=== PATIENT | female | born 1945 | race American Indian/Alaskan Native ===

== ENCOUNTER 2019-03-14 08:14 | Observation (INO) | payer MEDICARE ==
[2019-03-14] MEDS ORDERED: METOCLOPRAMIDE 10 MG/2 ML INJ IV ONE (08:42)
[2019-03-14] MEDS ORDERED: MORPHINE 2 MG/1 ML INJ IV ONE (08:42)
[2019-03-14] MEDS ORDERED: SODIUM CHLORIDE 0.9% 500 ML 500 ML IV ONE (08:42)
[2019-03-14] MEDS ORDERED: PANTOPRAZOLE 40 MG INJ IV ONE (08:43)
--- NOTE | 2019-03-14 08:46 | Event Note ---
Date of service: 03/14/19 Face to Face: Primary care Dr.: Dr Rivas Gastroenterology: Dr Ramirez Past medical history: Gastric ulcer, gastritis, type 2 diabetes, hypertension, history of leukemia or myelodysplastic syndrome, had an upper EGD performed in May 2018 at this hospital, found to have antral gastritis, initiated on pr oton pump inhibitor therapy, recently discontinued by her rehabilitation therapy technician. Plan is to treat her symptoms, obtain rectal guaiac examination, CT scan abdomen pelvis, EKG, and reassess. d/w PA who verbalized understanding Vital Signs 03/14/19 08:16 Temperature 98.4 F Pulse Rate 79 Respiratory 18 Rate Blood Pressure 140/67 O2 Sat by Pulse 100 Oximetry
[2019-03-14 09:09] LABS: Hematocrit 44.7 % (30.3-42.9); Hemoglobin 14.6 gm/dl (10.1-14.3); Mean Corpuscular HGB Conc 33 % (30-34); Mean Corpuscular Volume 82 fl (79-97); Platelet Count 298 K/mm3 (140-440); Red Blood Count 5.43 M/mm3 (3.65-5.03)
--- NOTE | 2019-03-14 09:39 | Emergency Department Report ---
ED Abdominal Pain HPI - General Chief Complaint: Abdominal Pain Stated Complaint: PAIN/VOMIT Time Seen by Provider: 03/14/19 08:36 Source: patient Mode of arrival: Wheelchair Limitations: No Limitations - History of Present Illness MD Complaint: abdominal pain -: Sudden, hour(s) Location: periumbilical, LUQ, LLQ, epigastric Radiation: LLQ, epigastric Severity: moderate Severity scale (0 -10): 10 Quality: cramping Consistency: constant Improves With: nothing Worsens With: nothing Context: other (reports previous history of peptic ulcer disease resulting in an admission about 2-3 years ago) Associated Symptoms: nausea, vomiting, diarrhea, other (she reported having dark stools to Dr. Estrada). denies: constipation, dysuria, hematemesis, hematochezia, hematuria, anorexia - Related Data Home Medications Medication Instructions Recorded Confirmed Last Taken Adult One Daily Multivit Tab PO DAILY 05/07/18 1 Day Ago ~05/06/18 Cardizem CD 180 mg PO DAILY 05/07/18 05/07/18 1 Day Ago ~05/06/18 Folic Acid 400 mg PO DAILY 05/07/18 05/07/18 1 Day Ago ~05/06/18 glipiZIDE [Glipizide] 5 mg PO DAILY 05/07/18 05/07/18 05/06/18 10:00 Previous Rx's Medication Instructions Recorded Last Taken Type Pantoprazole [Protonix] 40 mg PO QDAY #30 tablet 05/09/18 Unknown Rx Allergies Allergy/AdvReac Type Severity Reaction Status Date / Time No Known Allergies Allergy Unverified 05/07/18 07:23 ED Review of Systems ROS: Stated complaint: PAIN/VOMIT Other details as noted in HPI Comment: All other systems reviewed and negative ED Past Medical Hx - Past Medical History Previous Medical History?: Yes Hx Hypertension: Yes Hx Diabetes: Yes Hx HIV: No Additional medical history: Hx of Leukemia, in remission. - Surgical History Past Surgical History?: Yes Additional Surgical History: bilatteral hip replacement - Social History Smoking Status: Current Every Day Smoker Substance Use Type: None - Medications Home Medications: Home Medications Medication Instructions Recorded Confirmed Last Taken Type Adult One Daily Multivit Tab PO DAILY 05/07/18 1 Day Ago History ~05/06/18 Cardizem CD 180 mg PO DAILY 05/07/18 05/07/18 1 Day Ago History ~05/06/18 Folic Acid 400 mg PO DAILY 05/07/18 05/07/18 1 Day Ago History ~05/06/18 glipiZIDE [Glipizide] 5 mg PO DAILY 05/07/18 05/07/18 05/06/18 10:00 History Pantoprazole [Protonix] 40 mg PO QDAY #30 tablet 05/09/18 Unknown Rx ED Physical Exam - General Limitations: No Limitations General appearance: alert, in no apparent distress - Head Head exam: Present: atraumatic, normocephalic - Eye Eye exam: Present: normal appearance, PERRL, EOMI Pupils: Present: normal accommodation - ENT ENT exam: Present: normal exam, normal orophraynx, mucous membranes moist, TM's normal bilaterally - Neck Neck exam: Present: normal inspection, full ROM - Respiratory Respiratory exam: Present: normal lung sounds bilaterally. Absent: respiratory distress, wheezes, rales, chest wall tenderness, accessory muscle use - Cardiovascular Cardiovascular Exam: Present: regular rate, normal rhythm. Absent: systolic murmur, diastolic murmur, rubs, gallop - GI/Abdominal GI/Abdominal exam: Present: soft, tenderness, normal bowel sounds, other (no Shabana O Govea Browne no Rovsing). Absent: guarding - Rectal Rectal exam: Present: heme (-) stool, hemorrhoids - Extremities Exam Extremities exam: Present: normal inspection - Back Exam Back exam: Present: normal inspection - Neurological Exam Neurological exam: Present: alert, oriented X3, CN II-XII intact - Psychiatric Psychiatric exam: Present: normal affect, normal mood - Skin Skin exam: Present: warm, dry, intact, normal color. Absent: rash ED Course Vital Signs 03/14/19 03/14/19 03/14/19 08:16 09:26 10:37 Temperature 98.4 F Pulse Rate 79 88 88 Respiratory 18 22 18 Rate Blood Pressure 140/67 Blood Pressure 155/96 136/80 [Right] O2 Sat by Pulse 100 100 100 Oximetry 03/14/19 13:09 Temperature Pulse Rate 88 Respiratory 18 Rate Blood Pressure Blood Pressure 134/74 [Right] O2 Sat by Pulse 98 Oximetry ED Medical Decision Making - Lab Data Result diagrams: 03/14/19 08:53 03/14/19 10:03 - EKG Data EKG shows normal: sinus rhythm Rate: normal - EKG Data When compared to previous EKG there are: no significant change Interpretation: no acute changes - Radiology Data Radiology results: report reviewed (CT scan findings consistent with acute cholecystitis. Cold thighs. Moderate to large hiatal hernia. Uterine fibroid.) - Medical Decision Making 73-year-old female denies vomiting diarrhea and epigastric abdominal pain. CT s can reveals findings consistent with cholecystitis status: Thighs. White blood cell count is 12.2 she has a normal bili and normal liver enzymes alkaline phosphatase is elevated at 156. Plan is to admit the patient to the hospital due to her past medical history of diabetes and hypertension and her having a similar episode back in May 2018 speak with general surgery and admitted to medicine. Critical care attestation.: If time is entered above; I have spent that time in minutes in the direct care of this critically ill patient, excluding procedure time. ED Disposition Clinical Impression: Acute cholecystitis Disposition: DC-01 TO HOME OR SELFCARE Is pt being admited?: Yes Does the pt Need Aspirin: No Condition: Stable
[2019-03-14 10:30] LABS: INR 1.11 (0.87-1.13); Partial Thromboplastin Time 22.4 Sec. (24.2-36.6)
[2019-03-14 10:52] LABS: Alanine Aminotransferase 13 units/L (7-56); Albumin 3.9 g/dL (3.9-5); BUN/Creatinine Ratio 19; Blood Urea Nitrogen 17 mg/dL (7-17); Calcium 9.4 mg/dL (8.4-10.2); Hemolysis Index 25
[2019-03-14 12:00] LABS: Bacteria,Urine 2+ /HPF (Negative); Bilirubin,Urine NEG (Negative); Blood,Urine MOD (Negative); Color,Urine Yellow (Yellow); Mucus,Urine FEW /HPF; Urobilinogen,Urine < 2.0 mg/dL (<2.0)
--- NOTE | 2019-03-14 12:10 | Cat Scan Report ---
CT ABDOMEN AND PELVIS WITH CONTRAST HISTORY: Abdominal pain, nausea and vomiting COMPARISON: 05/07/2018 TECHNIQUE: Axial CT images were obtained through the abdomen and pelvis after 100 cc of Omnipaque 300 intravenously. Sagittal and coronal reformatted images. All CT scans at this location are performed using CT dose reduction for ALARA by means of automated exposure control. FINDINGS: CT ABDOMEN: Lung Bases: Clear. Moderate to large hiatal hernia is identified. Liver: No significant abnormality. Biliary: The gallbladder is dilated with mild gallbladder wall thickening and trace pericholecystic f luid. Multiple small calcified gallstones are identified. The intrahepatic biliary ducts and common b ile duct are unremarkable. Spleen: No significant abnormality. Unenlarged. Pancreas: Mild fatty atrophy. No inflammatory changes or mass. Adrenals: No significant abnormality. Kidneys: No significant abnormality. Lymphatics: No lymphadenopathy. Vasculature: No significant abnormality. Bowel/Peritoneum: No evidence for obstruction, focal inflammation, free air or free fluid. The append ix is unremarkable. CT PELVIS: : A 2.8 cm fibroid is suspected in the anterior uterine wall. The remainder of the uterus and adnex a are unremarkable. Osseous Structures: Osteopenia. Moderate thoracolumbar spondylosis. Bilateral hip replacements degene rate artifact in the pelvis. No fracture or suspicious bony lesion. Additional Findings: None IMPRESSION: Findings consistent with acute cholecystitis. Cholelithiasis. Moderate to large hiatal hernia. Uterine fibroid. Signer Name: Eliceo Schmitt Jr, MD Signed: 03/14/2019 12:06 PM Workstation Name: [id number]
[2019-03-14] MEDS ORDERED: PIPERACILLIN/TAZOBACTAM 3.375 3.375 GM/50 ML BAG IV STA (14:23)
--- NOTE | 2019-03-14 14:36 | Ultrasound Report ---
LIMITED RUQ ABDOMINAL ULTRASOUND INDICATION: choleystitis. Nausea and vomiting. COMPARISON: No relevant prior imaging study available. FINDINGS: Pancreas: Obscured by bowel gas. Abdominal Aorta: No significant abnormality. IVC: No significant abnormality. Liver: The liver measures 18.1 cm in length. No significant abnormality. Normal hepatopedal blood fl ow in the main portal vein. Gallbladder: The gallbladder is mildly distended and contains a few small stones. Gallbladder wall th ickening is slightly increased measuring 4 mm. No pericholecystic fluid collection on ultrasound. Bile ducts: No significant abnormality. Common bile duct measures 3 mm. Right kidney: The right kidney is slightly atrophic with increased echotexture measuring 8-9 cm in le ngth.. Free fluid: None. Additional Findings: None. IMPRESSION: Cholelithiasis. Given the CT and ultrasound findings, acute cholecystitis should be considered. Chronic renal parenchymal disease.. Signer Name: Eliceo Schmitt Jr, MD Signed: 03/14/2019 2:32 PM Workstation Name: [id number]
[2019-03-14] MEDS ORDERED: LIDOCAINE (1%) 10 MG/1 ML VIAL 20 ML MDV ONE (14:47)
[2019-03-14] MEDS ORDERED: BUPIVACAINE/PF (0.5%) 5 MG/1 ML 30 ML VIAL INFILTRATI ONE ×2 (14:47→15:53)
--- NOTE | 2019-03-14 14:56 | Consultation ---
History of Present Illness Consult date: 03/14/19 Reason for consult: abdominal pain Chief complaint: abdominal pain - History of present illness History of present illness: 73-year-old female with past medical history of hypertension presents to emergen cy room with complaints of right upper quadrant abdominal pain, cramping, nonradiating that started last night after dinner. She states she had macaroni and cheese and the pain started one hour later. She was unable to sleep and the pain severity increased and she came to the emergency room. She has had pain like this in the past. Last May she was admitted to [facility] with epigastric and right upper quadrant abdominal pain. She underwent an EGD which showed benign-appearing ulcer and she was started on medications. Her pain is associated with nausea and 2 episodes of nonbilious, nonbloody vomiting overnight. She denies fevers, chills, chest pain, shortness of breath Past History Past Medical History: diabetes, hypertension, other (PUD) Past Surgical History: Other (bilateral hip replacement) Social history: no significant social history Medications and Allergies Allergies Allergy/AdvReac Type Severity Reaction Status Date / Time No Known Allergies Allergy Unverified 05/07/18 07:23 Home Medications Medication Instructions Recorded Confirmed Last Taken Type Adult One Daily Multivit Tab PO DAILY 05/07/18 1 Day Ago History ~05/06/18 Cardizem CD 180 mg PO DAILY 05/07/18 05/07/18 1 Day Ago History ~05/06/18 Folic Acid 400 mg PO DAILY 05/07/18 05/07/18 1 Day Ago History ~05/06/18 glipiZIDE [Glipizide] 5 mg PO DAILY 05/07/18 05/07/18 05/06/18 10:00 History Pantoprazole [Protonix] 40 mg PO QDAY #30 tablet 05/09/18 Unknown Rx Review of Systems All systems: negative (10 point review systems was performed and negative except for that listed in HPI) Exam Vital Signs Temp Pulse Resp BP Pulse Ox 98.4 F 79 18 140/67 100 03/14/19 08:16 03/14/19 08:16 03/14/19 08:16 03/14/19 08:16 03/14/19 08:16 Narrative exam: General: Awake, alert, oriented 3. No apparent distress ENT: No scleral icterus or conjunctival pallor CV: S1, S2 present Respiratory: Even and unlabored Abdomen: Soft, nondistended, + tenderness to palpation in the right upper quadrant and epigastrium. No rebound, rigidity, guarding Extremities: No clubbing, cyanosis, edema Results - Labs 03/14/19 08:53 03/14/19 10:03 Abnormal lab results 03/14/19 03/14/19 03/14/19 Range/Units 08:53 10:03 10:03 WBC 12.2 H (4.5-11.0) K/mm3 RBC 5.43 H (3.65-5.03) M/mm3 Hgb 14.6 H (10.1-14.3) gm/dl Hct 44.7 H (30.3-42.9) % MCH 27 L (28-32) pg APTT 22.4 L (24.2-36.6) Sec. Sodium 136 L (137-145) mmol/L Carbon Dioxide 16 L (22-30) mmol/L Glucose 152 H (65-100) mg/dL Alkaline Phosphatase 156 H (35-129) units/L Total Protein 8.7 H (6.3-8.2) g/dL Diabetes panel 03/14/19 Range/Units 10:03 Sodium 136 L (137-145) mmol/L Potassium 4.7 (3.6-5.0) mmol/L Chloride 102.0 (98-107) mmol/L Carbon Dioxide 16 L (22-30) mmol/L BUN 17 (7-17) mg/dL Creatinine 0.9 (0.7-1.2) mg/dL Glucose 152 H (65-100) mg/dL Calcium 9.4 (8.4-10.2) mg/dL AST 21 (5-40) units/L ALT 13 (7-56) units/L Alkaline Phosphatase 156 H (35-129) units/L Total Protein 8.7 H (6.3-8.2) g/dL Albumin 3.9 (3.9-5) g/dL Calcium panel 03/14/19 Range/Units 10:03 Calcium 9.4 (8.4-10.2) mg/dL Albumin 3.9 (3.9-5) g/dL Pituitary panel 03/14/19 Range/Units 10:03 Sodium 136 L (137-145) mmol/L Potassium 4.7 (3.6-5.0) mmol/L Chloride 102.0 (98-107) mmol/L Carbon Dioxide 16 L (22-30) mmol/L BUN 17 (7-17) mg/dL Creatinine 0.9 (0.7-1.2) mg/dL Glucose 152 H (65-100) mg/dL Calcium 9.4 (8.4-10.2) mg/dL Adrenal panel 03/14/19 Range/Units 10:03 Sodium 136 L (137-145) mmol/L Potassium 4.7 (3.6-5.0) mmol/L Chloride 102.0 (98-107) mmol/L Carbon Dioxide 16 L (22-30) mmol/L BUN 17 (7-17) mg/dL Creatinine 0.9 (0.7-1.2) mg/dL Glucose 152 H (65-100) mg/dL Calcium 9.4 (8.4-10.2) mg/dL Total Bilirubin 0.50 (0.1-1.2) mg/dL AST 21 (5-40) units/L ALT 13 (7-56) units/L Alkaline Phosphatase 156 H (35-129) units/L Total Protein 8.7 H (6.3-8.2) g/dL Albumin 3.9 (3.9-5) g/dL - Imaging CT scan - abdomen: report reviewed, image reviewed CT scan - pelvis: report reviewed, image reviewed US - abdomen: report reviewed, image reviewed Assessment and Plan 73-year-old female with acute cholecystitis 1. Admit to hospitalist 2. NPO 3. IVF 4. IV abx - zosyn to be given in ER 5. prn pain and nausea control 6. resume home meds 7. recommend cholecystectomy - discussed this with patient in detail and reviewe d risks, benefits, alternatives with her. Questions answered and consent obtained for Robotic assisted cholecystectomy, possible open, possible cholangiogram. Will proceed to OR today D/w Dr. Peterson. Thank you, please call with questions.
--- NOTE | 2019-03-14 14:57 | Anesthesia Consultation ---
Anesthesia Consult and Med Hx Date of service: 03/14/19 - Airway Anesthetic Teeth Evaluation: Dentures ROM Head & Neck: Adequate Mental/Hyoid Distance: Adequate Mallampati Class: Class II Intubation Access Assessment: Probably Good - Pulmonary Exam CTA: Yes - Cardiac Exam Cardiac Exam: RRR - Pre-Operative Health Status ASA Pre-Surgery Classification: ASA3 Proposed Anesthetic Plan: General - Pre-Anesthesia Comment Pre-Anesthesia Comments: Patient denied previous anesthesia complications - Pulmonary Hx Smoking: Yes (Puffs about 1-2 cigarrettes a day.) Hx Asthma: No Hx Respiratory Symptoms: No SOB: No COPD: No Hx Sleep Apnea: No - Cardiovascular System Hx Hypertension: Yes Hx Coronary Artery Disease: No Hx Heart Attack/AMI: No Hx Angina: No Hx Cardia Arrhythmia: No - Central Nervous System Hx Seizures: No CVA: No Hx Psychiatric Problems: No - Gastrointestinal Hx Ulcer: Yes - Endocrine Hx Renal Disease: No Hx Liver Disease: No Hx Non-Insulin Dependent Diabetes: Yes Hx Thyroid Disease: No - Other Systems Hx Alcohol Use: No Hx Substance Use: No Hx Cancer: Yes (Hx. of Leukemia. Currently on remission.) - Additional Comments Anesthesia Medical History Comments: Several episodes of nausea and vomiting in the last 24 hours. Denied previous anesthesia complications.
--- NOTE | 2019-03-14 15:04 | Anesthesia Day of Surgery ---
Anesthesia Day of Surgery - Day of Surgery Patient Examined: Yes Patient H&P Reviewed: Yes Patient is NPO: Yes
--- NOTE | 2019-03-14 15:06 | History and Physical Report ---
History of Present Illness Date of examination: 03/14/19 Date of admission: 03/14/19 14:24 Chief complaint: Abdominal pain since last night History of present illness: 73-year-old -[place] female with past medical history of hypertension type 2 diabetes and GERD comes in for increasing pain in the right upper quadrant and all over the abdomen as last night. Pain is over 10 scale of 1-10. Pain is sharp and intermittent associated with vomiting multiple times since last night. No exacerbating or relieving factors. No recent travel. He vomited about 10 times since last night.. Past History Past Medical History: diabetes, GERD, hypertension Past Surgical History: No surgical history Social history: no significant social history, Lives alone, lives with family, full code Family history: hypertension Medications and Allergies Allergies Allergy/AdvReac Type Severity Reaction Status Date / Time No Known Allergies Allergy Unverified 05/07/18 07:23 Home Medications Medication Instructions Recorded Confirmed Last Taken Type Adult One Daily Multivit Tab 1 mg PO DAILY 05/07/18 03/14/19 03/14/19 History Cardizem CD 180 mg PO DAILY 05/07/18 03/14/19 03/13/19 History Folic Acid 400 mg PO DAILY 05/07/18 03/14/19 03/13/19 History glipiZIDE [Glipizide] 5 mg PO DAILY 05/07/18 03/14/19 03/13/19 History Pantoprazole [Protonix] 40 mg PO QDAY #30 tablet 05/09/18 03/14/19 03/13/19 Rx Review of Systems All systems: negative (records cardiac and neurologic.) Gastrointestinal: abdominal pain, nausea, vomiting (vomiting about 10 times since last night) Exam - Constitutional Vitals: Temp Pulse Resp BP Pulse Ox 98.4 F 88 18 134/74 98 03/14/19 08:16 03/14/19 13:09 03/14/19 13:09 03/14/19 13:09 03/14/19 13:09 General appearance: Present: mild distress, well-nourished - EENT Eyes: Present: PERRL ENT: hearing intact, clear oral mucosa - Neck Neck: Present: supple, normal ROM - Respiratory Respiratory effort: normal Respiratory: bilateral: CTA - Cardiovascular Heart rate: 78 Rhythm: regular Heart Sounds: Present: S1 & S2. Absent: rub, click - Extremities Extremities: no ischemia, pulses intact, pulses symmetrical, No edema Peripheral Pulses: within normal limits - Abdominal General gastrointestinal: Present: soft, non-tender, non-distended, normal bowel sounds Localized gastrointestinal: tender: RUQ, guarding: RUQ, rebound: RUQ Female genitourinary: Present: normal - Rectal Rectal Exam: deferred - Integumentary Integumentary: Present: clear, warm, dry - Musculoskeletal Musculoskeletal: gait normal, strength equal bilaterally - Psychiatric Psychiatric: appropriate mood/affect, intact judgment & insight - Neurologic Neurologic: CNII-XII intact, moves all extremities - Allied Health Allied health notes reviewed: nursing, case management Results - Labs CBC & Chem 7: 03/14/19 08:53 03/14/19 10:03 Labs: Laboratory Last Values WBC 12.2 K/mm3 (4.5-11.0) H 03/14/19 08:53 RBC 5.43 M/mm3 (3.65-5.03) H 03/14/19 08:53 Hgb 14.6 gm/dl (10.1-14.3) H 03/14/19 08:53 Hct 44.7 % (30.3-42.9) H 03/14/19 08:53 MCV 82 fl (79-97) 03/14/19 08:53 MCH 27 pg (28-32) L 03/14/19 08:53 MCHC 33 % (30-34) 03/14/19 08:53 RDW 15.0 % (13.2-15.2) 03/14/19 08:53 Plt Count 298 K/mm3 (140-440) 03/14/19 08:53 PT 14.0 Sec. (12.2-14.9) 03/14/19 10:03 INR 1.11 (0.87-1.13) 03/14/19 10:03 APTT 22.4 Sec. (24.2-36.6) L 03/14/19 10:03 Sodium 136 mmol/L (137-145) L 03/14/19 10:03 Potassium 4.7 mmol/L (3.6-5.0) 03/14/19 10:03 Chloride 102.0 mmol/L (98-107) 03/14/19 10:03 Carbon Dioxide 16 mmol/L (22-30) L 03/14/19 10:03 Anion Gap 23 mmol/L 03/14/19 10:03 BUN 17 mg/dL (7-17) 03/14/19 10:03 Creatinine 0.9 mg/dL (0.7-1.2) 03/14/19 10:03 Estimated GFR > 60 ml/min 03/14/19 10:03 BUN/Creatinine Ratio 19 % 03/14/19 10:03 Glucose 152 mg/dL (65-100) H 03/14/19 10:03 Calcium 9.4 mg/dL (8.4-10.2) 03/14/19 10:03 Magnesium 2.30 mg/dL (1.7-2.3) 03/14/19 10:03 Total Bilirubin 0.50 mg/dL (0.1-1.2) 03/14/19 10:03 AST 21 units/L (5-40) 03/14/19 10:03 ALT 13 units/L (7-56) 03/14/19 10:03 Alkaline Phosphatase 156 units/L (35-129) H 03/14/19 10:03 Total Creatine Kinase 91 units/L (30-135) 03/14/19 10:03 Total Protein 8.7 g/dL (6.3-8.2) H 03/14/19 10:03 Albumin 3.9 g/dL (3.9-5) 03/14/19 10:03 Albumin/Globulin Ratio 0.8 % 03/14/19 10:03 Lipase 15 units/L (13-60) 03/14/19 10:03 Urine Color Yellow (Yellow) 03/14/19 11:27 Urine Turbidity Clear (Clear) 03/14/19 11:27 Urine pH 7.0 (5.0-7.0) 03/14/19 11:27 Ur Specific [place] 1.011 (1.003-1.030) 03/14/19 11:27 Urine Protein 30 mg/dl mg/dL (Negative) 03/14/19 11:27 Urine Glucose (UA) Neg mg/dL (Negative) 03/14/19 11:27 Urine Ketones Neg mg/dL (Negative) 03/14/19 11:27 Urine Blood Mod (Negative) 03/14/19 11:27 Urine Nitrite Neg (Negative) 03/14/19 11:27 Urine Bilirubin Neg (Negative) 03/14/19 11:27 Urine Urobilinogen < 2.0 mg/dL (<2.0) 03/14/19 11:27 Ur Leukocyte Esterase Neg (Negative) 03/14/19 11:27 Urine WBC (Auto) 3.0 /HPF (0.0-6.0) 03/14/19 11:27 Urine RBC (Auto) 22.0 /HPF (0.0-6.0) 03/14/19 11:27 U Epithel Cells (Auto) 2.0 /HPF (0-13.0) 03/14/19 11:27 Urine Bacteria (Auto) 2+ /HPF (Negative) 03/14/19 11:27 Urine Mucus Few /HPF 03/14/19 11:27 - Imaging and Cardiology EKG: report reviewed (NSR 83/min) US - abdomen: report reviewed Venous US: pending Imaging and Cardiology: CT Abdomen/pelvis Biliary: The gallbladder is dilated with mild gallbladder wall thickening and trace pericholecystic fluid. Multiple small calcified gallstones are identified. The intrahepatic biliary ducts and common bile duct are unremarkable. CT PELVIS: : A 2.8 cm fibroid is suspected in the anterior uterine wall. The remainder of the uterus and adnexa are unremarkable. Osseous Structures: Osteopenia. Moderate thoracolumbar spondylosis. Bilateral hip replacements degenerate artifact in the pelvis. No fracture or suspicious bony lesion. Additional Findings: None IMPRESSION: Findings consistent with acute cholecystitis. Cholelithiasis. Moderate to large hiatal hernia. Uterine fibroid. Signer Name: Eliceo Schmitt Jr, MD Ultrasound right upper quadrant abdomen IMPRESSION: Cholelithiasis. Given the CT and ultrasound findings, acute cholecystitis should be considered. Chronic renal parenchymal disease.. Assessment and Plan Advance Directives: Yes (Full code) VTE prophylaxis?: Chemical Plan of care discussed with patient/family: Yes - Patient Problems (1) Acute cholecystitis Current Visit: Yes Status: Acute Plan to address problem: Surgery consulted Patient being taken to the operating room for emergent surgery IV fluids for now IV Zosyn 4.5 g every 8 (2) Hypertension Current Visit: Yes Status: Chronic Qualifiers: Hypertension type: essential hypertension Qualified Code(s): I10 - Essential (primary) hypertension Plan to address problem: We will hold the oral antihypertensives for the time being Patient started on Catapres patch TTS 2 Resuming oral antihypertensives from tomorrow when patient starts eating and discontinue Catapres patch (3) Type 2 diabetes mellitus Current Visit: Yes Status: Chronic Qualifiers: Diabetes mellitus alf insulin use: without alf use Plan to address problem: We will hold the glipizide for the time being Accu-Cheks every 6 hours and moderate dose sliding scale protocol (4) GERD (gastroesophageal reflux disease) Current Visit: Yes Status: Chronic Plan to address problem: IV famotidine for now (5) DVT prophylaxis Current Visit: Yes Status: Acute Plan to address problem: On SCD's and GI prophylaxis
[2019-03-14] MEDS ORDERED: fentaNYL 100 MCG/2 ML INJ ONE ×2 (15:14→17:46)
[2019-03-14] MEDS ORDERED: PROPOFOL 200 MG/20 ML VIAL IV ONE (15:14)
[2019-03-14] MEDS ORDERED: LIDOCAINE MPF (2%) 20 MG/1 ML VIAL 5 ML ONE (15:16)
[2019-03-14] MEDS ORDERED: LACTATED RINGERS 1,000 ML ONE (15:19)
[2019-03-14] MEDS ORDERED: HYDROmorphone 1 MG/1 ML INJ IV PRN ×2 (15:30→18:03)
[2019-03-14] MEDS ORDERED: ONDANSETRON 4 MG/2 ML INJ IV PRN (15:30)
[2019-03-14] MEDS ORDERED: ACETAMINOPHEN 325 MG TAB PO PRN (15:30)
[2019-03-14] MEDS ORDERED: LIDOCAINE (1%) 10 MG/1 ML VIAL 20 ML MDV INFILTRATI ONE (15:53)
[2019-03-14] MEDS ORDERED: WATER FOR IRRIG STERILE 1,500 ML BOTTLE IR ONE (15:54)
[2019-03-14] MEDS ORDERED: SODIUM CHLORIDE 0.9% 1000 ML 1,000 ML IV SCH (16:00)
[2019-03-14] MEDS ORDERED: ONDANSETRON 4 MG/2 ML INJ ONE (16:17)
[2019-03-14] MEDS ORDERED: oxyCODONE /ACETAMINOPHEN 5-325MG TAB PO PRN (17:39)
--- NOTE | 2019-03-14 17:39 | Post Operative Note ---
Date of procedure: 03/14/19 Pre-op diagnosis: acute cholecystitis Post-op diagnosis: same Findings: very distended gallbladder with thickened wall, pericholecystic fluid. Redundant with short cystic duct Procedure: robotic assisted cholecystectomy, lysis of adhesions Anesthesia: LUC, local Surgeon: RONIT MORATAYA Visual Developer: EMILIO COY Estimated blood loss: 50-100ml Pathology: list (GALLBLADDER) Specimen disposition: to lab Condition: stable Disposition: PACU
[2019-03-14] MEDS ORDERED: HYDROmorphone 1 MG/1 ML INJ ONE (18:04)
[2019-03-14] MEDS: FAMOTIDINE 20 MG/2 ML INJ IV SCH (21:16)
[2019-03-14] MEDS: INSULIN LISPRO 100 UNIT/ML SUB-Q SCH (21:30)
[2019-03-14] MEDS ORDERED: PIPERACIL/TAZOBACTA 4.5/NS 100 4.5 GM/100 ML VIAL IV SCH (22:00)
[2019-03-15 05:40] LABS: Basophils # (Auto) 0.1 K/mm3 (0.0-0.1); Basophils % (Auto) 0.4 % (0.0-1.8); Hematocrit 38.4 % (30.3-42.9); Hemoglobin 12.4 gm/dl (10.1-14.3); Lymphocytes # (Auto) 1.3 K/mm3 (1.2-5.4); Mean Corpuscular HGB Conc 32 % (30-34); Mean Corpuscular Volume 84 fl (79-97); Monocytes # (Auto) 0.8 K/mm3 (0.0-0.8); Monocytes % (Auto) 4.9 % (0.0-7.3); Platelet Count 269 K/mm3 (140-440); Red Blood Count 4.59 M/mm3 (3.65-5.03); Red Cell Distribution Width 15.1 % (13.2-15.2)
[2019-03-15 06:08] LABS: Albumin 3.3 g/dL (3.9-5); Calcium 8.2 mg/dL (8.4-10.2)
[2019-03-15] MEDS: INSULIN LISPRO 100 UNIT/ML SUB-Q SCH ×3 (07:15→11:24)
--- NOTE | 2019-03-15 10:49 | Progress Note ---
Assessment and Plan 73 yo F s/p robotic assisted cholecystectomy, POD 1 Plan: 1. c/w consistent carb/cardiac diet 2. dc IVF 3. no need for abx 4. elevation in WBC likely post op response 5. DVT ppx 6. prn pain control - PO 7. OOB/ambulate 8. IS/pulm toilet Ok to dc from surgery standpoint. Patient instructed to follow up in surgery clinic in 2 weeks. Thank you, please call with questions Subjective Date of service: 03/15/19 Narrative: Pt seen and examined. No acute complaints. Incisional pain is controlled. No n/v. Tolerated reg diet. No f/c. Has not been OOB Objective Vital Signs - 12hr 03/15/19 03/15/19 03/15/19 00:20 04:46 07:20 Temperature 98.3 F 98.4 F 98.8 F Pulse Rate 97 H 95 H 98 H Respiratory 20 20 18 Rate Blood Pressure 114/61 117/54 114/54 O2 Sat by Pulse 96 91 92 Oximetry - General physical appearance Narrative Exam: Gen: AAOx3. NAD CV; S1, S2+ Resp: even and unlabored Abd: soft, NT, ND. incisions c/d/i Ext: no c/c/e - Labs 03/15/19 04:21 03/15/19 04:21 Diabetes panel 03/14/19 03/14/19 03/15/19 Range/Units 08:53 10:03 04:21 Sodium 136 L 137 (137-145) mmol/L Potassium 4.7 4.2 (3.6-5.0) mmol/L Chloride 102.0 103.9 (98-107) mmol/L Carbon Dioxide 16 L 23 D (22-30) mmol/L BUN 17 16 (7-17) mg/dL Creatinine 0.9 1.1 (0.7-1.2) mg/dL Glucose 152 H 114 H (65-100) mg/dL Hemoglobin A1c 5.8 (4-6) % Calcium 9.4 8.2 L (8.4-10.2) mg/dL AST 21 34 (5-40) units/L ALT 13 31 (7-56) units/L Alkaline Phosphatase 156 H 112 (35-129) units/L Total Protein 8.7 H 7.1 (6.3-8.2) g/dL Albumin 3.9 3.3 L (3.9-5) g/dL Calcium panel 03/14/19 03/15/19 Range/Units 10:03 04:21 Calcium 9.4 8.2 L (8.4-10.2) mg/dL Albumin 3.9 3.3 L (3.9-5) g/dL Pituitary panel 03/14/19 03/15/19 Range/Units 10:03 04:21 Sodium 136 L 137 (137-145) mmol/L Potassium 4.7 4.2 (3.6-5.0) mmol/L Chloride 102.0 103.9 (98-107) mmol/L Carbon Dioxide 16 L 23 D (22-30) mmol/L BUN 17 16 (7-17) mg/dL Creatinine 0.9 1.1 (0.7-1.2) mg/dL Glucose 152 H 114 H (65-100) mg/dL Calcium 9.4 8.2 L (8.4-10.2) mg/dL Adrenal panel 03/14/19 03/15/19 Range/Units 10:03 04:21 Sodium 136 L 137 (137-145) mmol/L Potassium 4.7 4.2 (3.6-5.0) mmol/L Chloride 102.0 103.9 (98-107) mmol/L Carbon Dioxide 16 L 23 D (22-30) mmol/L BUN 17 16 (7-17) mg/dL Creatinine 0.9 1.1 (0.7-1.2) mg/dL Glucose 152 H 114 H (65-100) mg/dL Calcium 9.4 8.2 L (8.4-10.2) mg/dL Total Bilirubin 0.50 0.70 (0.1-1.2) mg/dL AST 21 34 (5-40) units/L ALT 13 31 (7-56) units/L Alkaline Phosphatase 156 H 112 (35-129) units/L Total Protein 8.7 H 7.1 (6.3-8.2) g/dL Albumin 3.9 3.3 L (3.9-5) g/dL
[2019-03-15] MEDS: FAMOTIDINE 20 MG/2 ML INJ IV SCH (11:56)
[2019-03-15 12:51] VITALS: BP 98/51
--- NOTE | 2019-03-15 12:51 | Post Anesthesia Evaluation ---
- Post Anesthesia Evaluation Patient Participated: Yes Airway Patent: Yes Stable Respiratory Function: Yes Nausea/Vomiting: No Temp > 96.8F: Yes Pain Manageable: Yes Adequeate Hydration: Yes Anesthesia Complications: No Block Receding Appropriately: Not Applicable Patient on Ventilator: No
--- NOTE | 2019-03-15 13:00 | Discharge Summary ---
Providers - Providers Date of Admission: 03/14/19 14:24 Date of discharge: 03/15/19 Attending physician: ERASMO HENDERSON 03/14/19 Consult to Case Management [CONS] Routine Services Needed at Discharge: Home Health Services Notified:: cm notified 03/14/19 12:50 Consult to Physician [CONS] Stat Comment: Consulting Provider: RONIT MORATAYA Physician Instructions: Reason For Exam: abd pain cholecystitis Primary care physician: MAMTA HYMAN Hospitalization Condition: Fair Hospital course: Patient is 73-year-old -[place] female with past medical history of hypertension, type 2 diabetes and GERD presented with abdominal pain, mostly in the right upper quadrant. This was associated with vomiting multiple times. She was seen and evaluated in Emergency Department. CT abdomen confirmed cholelithiasis with acute cholecystitis. She was admitted, evaluated by Surgeon. Robotic assisted cholecystectomy and lysis of adhesions was done same day by Surgeon, Berhane. Post op, she recovered well and was discharged home following day. Disposition: - TO HOME OR SELFCARE - Discharge Diagnoses (1) Obesity (BMI 30.0-34.9) Status: Acute (2) Acute cholecystitis Status: Acute (3) Cholelithiasis Status: Acute (4) Diabetes mellitus Status: Acute (5) Hiatal hernia Status: Acute (6) GERD (gastroesophageal reflux disease) Status: Chronic (7) Hypertension Status: Chronic Qualifiers: Hypertension type: essential hypertension Qualified Code(s): I10 - Essential (primary) hypertension (8) Type 2 diabetes mellitus Status: Chronic Qualifiers: Diabetes mellitus fdc insulin use: without emt intermediate use Core Measure Documentation - Palliative Care Palliative Care/ Comfort Measures: Not Applicable - Core Measures Any of the following diagnoses?: none Exam - Constitutional Vitals: Temp Pulse Resp BP Pulse Ox 98.5 F 97 H 20 98/51 95 03/15/19 12:25 03/15/19 12:25 03/15/19 12:25 03/15/19 12:25 03/15/19 12:25 Plan Diet: low fat, low cholesterol, low salt, diabetic Plan of Treatment: 1.Follow up with PCP in 1 week. 2.Follow up with Dr. Morataya, Surg in 2 weeks Follow up with: PRIMARY CARE, [Referring] - 3-5 Days Forms: Accompanied Note, Work/School Release Form(ED) Prescriptions: oxyCODONE /ACETAMINOPHEN [Percocet 5/325 mg] 1 tab PO Q6HR PRN #20 tablet PRN Reason: Pain
--- NOTE | 2019-03-15 13:48 | Operative Report ---
Operative Report Operative Report: Date of procedure: 03/14/19 Pre-op diagnosis: acute cholecystitis Post-op diagnosis: same Findings: very distended gallbladder with thickened wall, pericholecystic fluid. Redundant with short cystic duct Procedure: robotic assisted cholecystectomy, lysis of adhesions Anesthesia: LUC local Surgeon: RONIT MORATAYA Soundscriber Mechanic: EMILIO COY Estimated blood loss: 50-100ml Pathology: list (GALLBLADDER) Specimen disposition: to lab Condition: stable Disposition: PACU HPI an indication: 73-year-old female presented to the emergency room with severe right upper quadrant abdominal pain, nausea, vomiting. Coli blood cell count was elevated and imaging consisting a CT scan and ultrasound of the abdomen showed acute cholecystitis. After all the appropriate workup was performed and reviewed, cholecystectomy was recommended. All risks, benefits, alternatives to surgery were discussed with the patient and questions answered. Consent was signed robotic assisted cholecystectomy, possible open, possible cholangiogram. Procedure in detail: The patient was identified in the preoperative area and taken back to the operating room, placed on the operating room table in supine position. After anesthesia was induced, the right arm was tucked and all bony prominences padded appropriately. The abdomen was prepped and draped in usual sterile fashion and timeout was performed. Local anesthetic was infiltrated into all of the skin incision sites. A 12mm supraumbilical incision was made through which a veress needle was inserted. The positioning of the veress needle was confirmed with the saline drop test and the abdomen was then insufflated to 15 mmHg. Once the abdomen was insufflated, the Veress needle was removed and a 12 mm Optiview trocar was placed through this incision. The abdomen was then inspected and there was no underlying injury to any of the abdominal contents. A left upper quadrant 8 mm robotic trocar was placed under direct visualization. There were adhesions in the right upper quadrant to the abdominal wall which were taken down with EndoShears. An additional right upper quadrant, and right mid lateral abdominal 8 mm robotic trocars were placed under direct visualization. The patient was placed in reverse Trendelenburg and tilted to the left. The gallbladder was visualized and was encased in omental adhesions. Some of these adhesions were taken down bluntly using a grasper. The gallbladder was extremely distended and therefore was decompressed using a laparoscopic needle and 30 mL syringe. Greater than 100 mL of green bile was aspirated. The robot was then docked in the usual fashion and the surgeon moved to the console. A monopolar hook was placed in arm #1, a cadiere grasper in arm #2 and a Prograsp in arm#3. The gallbladder was again visualized and there were omental adhesions to the liver and gallbladder. The adhesions were carefully taken down using a combination of blunt dissection and electrocautery with a hook. The gallbladder was grasped and lifted cephalad. The gallbladder was extremely edematous, with a thickened wall. It was difficult to grasp the gallbladder and retracted and therefore was decided to perform a dome down approach. The peritoneum overlying the fundus of the gallbladder was scored with a hook and dissection carried out between the gallbladder and the liver using electrocautery. The gallbladder wall and liver bed were friable and there was pinpoint bleeding during the dissection which was carefully controlled with pressure and electrocautery. A 5 mm assistant surveyor port was placed in the left upper quadrant medial to the robotic trocar under direct visualization. Soundscriber Mechanic surgeon perform suctioning and distal retraction through this trocar. The infundibulum of the gallbladder was reached and was also encased in thick adhesions. The gallbladder tissue was redundant. Once at the neck of the gallbladder was reached the cystic artery was dissected as well as the cystic duct. The entire gallbladder had been dissected free of the liver bed during the dome down dissection. Therefore the cystic duct and artery were the only 2 structures seen entering the gallbladder. A clip was placed on the proximal aspect of the cystic artery and it was transected using hook electrocautery. Because of the thickened tissue around the cystic duct and the very short nature of the cystic duct it was decided to staple the structure. The robot was undocked and the surgeon scrubbed back in. The remainder of the procedure was performed laparoscopically. All bladder was grasped and retracted cephalad and laterally in order to expose the cystic duct. Using a echelon 60 mm blue load automatic stapler, the cystic duct was stapled. The gallbladder was placed into an Endo Catch bag and removed via the 12 mm port. The abdomen was inspected for hemostasis which is carefully ensured. Velazquez's pouch and the liver bed were carefully irrigated until the irrigant returned clear. There was no bleeding or bile leakage seen. The clip on the cystic artery as well as the staple line on this cystic duct were visualized and intact. The omental adhesions that were taken down at the beginning of the case were inspected and hemostasis carefully ensured. Flory powder was sprayed over this omentum. The patient was placed in neutral position and the 12 mm port fascia was closed with interrupted 0 Vicryl sutures using the David Rowan device. Remaining ports are removed under direct visualization. The skin incisions were once again infiltrated with local anesthetic and closed with 4-0 Monocryl subcuticular stitches and skin glue. At the end case all sponge, instrument, sharp counts were correct 2. The patient was awoken from anesthesia, extubated, taken to PACU in stable condition.
== END 2019-03-15 15:11 | disposition home or self-care (01) ==
LOC: ED 08:14 → INTOOBSV 14:24 → 2B-ACE 14:24 → 3B-SURG 15:48
PROVIDERS: ADMIT Internal Medicine; ATTEND Internal Medicine
DX: K81.0 Acute cholecystitis (principal); I10 Essential (primary) hypertension; K21.9 Gastro-esophageal reflux disease without esophagitis; E11.9 Type 2 diabetes mellitus without complications; Z79.4 Long term (current) use of insulin
CPT/HCPCS: 36415; 47564; 74177; 76705; 80053; 81001; 82271; 82550; 82962; 83036; 83690; 83735; 85025; 85027; 85610; 85730; 88304; 93005; 93010; 96361; 96365; 96366; 96375; 96376; 99285; C9113; G0378; J1170; J2270; J2405; J2543; J2704; J2765; J3010; J7030; J7040; J7120; Q9967; S2900

== ENCOUNTER 2021-04-04 09:35 | Outpatient (CLI) | payer MEDICARE ==
--- NOTE | 2021-04-04 13:32 | XRay Report ---
AP PELVIS INDICATION: PAIN IN UNSPECIFIED HIP. COMPARISON: Pelvic CT 03/14/2019 FINDINGS: No fracture or dislocation of pelvis or either hip. Bilateral hip arthroplasty/spacer devices are unc hanged. Moderate nonbridging heterotopic ossification both hips. Signer Name: Prosper Mace MD Signed: 04/04/2021 1:27 PM Workstation Name: [id number]
--- NOTE | 2021-04-04 13:33 | XRay Report ---
BILATERAL KNEE 3 VIEW(S) INDICATION / CLINICAL INFORMATION: BILATERAL KNEE PAIN COMPARISON: None available. FINDINGS: BONES / JOINT(S): No acute fracture or subluxation. Moderately advanced tricompartmental bilateral kn ee degenerative arthrosis worse within both lateral femoral tibial compartments. SOFT TISSUES: No significant abnormality. ADDITIONAL FINDINGS: None. Signer Name: Prosper Mace MD Signed: 04/04/2021 1:28 PM Workstation Name: [id number]
--- NOTE | 2021-04-04 13:55 | XRay Report ---
BILATERAL FEMURS 8 VIEWS INDICATION / CLINICAL INFORMATION: PAIN IN UNSPECIFIED HIP COMPARISON: None available. FINDINGS: BONES and JOINT(S): The bones are demineralized. Bilateral hip arthroplasties appear intact and in ex pected position. There is heterotopic ossification adjacent to the hips. No acute displaced fracture or dislocation. Moderate osteoarthritis of the knees is noted. SOFT TISSUES: No significant abnormality. ADDITIONAL FINDINGS: None. IMPRESSION: 1. No acute findings. 2. Unremarkable appearing bilateral hip arthroplasties with moderate osteoarthritis of the knees. Signer Name: Matti Liang MD Signed: 04/04/2021 1:50 PM Workstation Name: [id number]
== END 2021-04-04 09:36 | disposition home or self-care (01) ==
LOC: XRAY 09:35
PROVIDERS: ATTEND Orthopaedic Surgery
DX: M17.0 Bilateral primary osteoarthritis of knee (principal); M25.552 Pain in left hip; M25.551 Pain in right hip
CPT/HCPCS: 72170; 73565